=== PATIENT | female | born 2005 | race Caucasian/White ===

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

== ENCOUNTER 2023-07-21 09:48 | Emergency (ER) | payer BC, SELFPAY ==
--- NOTE | 2023-07-21 09:49 | ECG_ITS ---
APPROVED REPORT Exam: Resting ECG HR:78 bpm ECG Measurements Heart Rate 78 AXES VT 191 P 116 QRSd 96 QRS 100 QT 361 T 111 QTc 395 Conclusion SINUS RHYTHM ARM LEADS REVERSED [INVERTED P AND QRS IN I] NORMAL ECG UNCONFIRMED REPORT Electronically signed by : MICHELLE HAN, 07/21/2023 14:48:41
--- NOTE | 2023-07-21 09:49 | PC.NURSE ---
DR HAN AT BEDSIDE
[2023-07-21 09:57] VITALS: BP 142/79; PULSE 66; RESP 20; TEMP 37.1; O2SAT 100; BMI 25.7
--- NOTE | 2023-07-21 10:19 | ED_ITS ---
Discharge Plan Disposition Patient Disposition: Home, Self-Care Condition: Good Prescriptions Prescriptions: No Action glycopyrrolate 1 mg tablet 1 mg PO DAILY Qty: 90 3RF Referrals Follow up/Referrals: Jill Kate PA [Primary Care Provider] - See instructions Activity Restrictions/Add. Instructions Additional Instructions/Restrictions: You were evaluated in the emergency department today. Return for new or worsening symptoms. Clinical Impressions Clinical Impression: Syncope, vasovagal Instructions Patient Instructions: DI for Syncope in Adults (Fainting) Discharge ED Provider: Miryam Valles General Adult HPI General Chief complaint: Syncope Stated complaint: SYNCOPE Time Seen by Provider: 07/21/23 09:52 Mode of Arrival: Wheelchair Source of Information: Patient Limitations: No Limitations Description of Symptoms (Recalled from ER Triage Doc. by RN): pt to ed c/o syncope. pt reports she was watching a procedure of a family member and became light headed and passed out. pt a&o x4 on arrival to ed. pt has no complaints. History of Present Illness HPI narrative: This patient is a 17-year-old female without significant past medical history presenting to the emergency department for evaluation with concern for syncope. Patient was watching a family member have a block procedure done upstairs when she said that she developed tunnel vision, became lightheaded, diaphoretic, and passed out. She states the next and she remembers, she woke up in a wheelchair. She states she is currently feeling fine except is a little bit shaky. Per nursing staff from upstairs, patient passed out and landed on her face on the ground. They also took vitals and noted that she was bradycardic with a heart rate in the 30s. Patient denies any symptoms or concerns this morning and states that she ate breakfast and was feeling fine. She denies any headache, vision changes, facial pain, chest pain, shortness of breath, abdominal pain, or other concerns. Related Data Previous Rx's Medication Instructions Recorded glycopyrrolate 1 mg tablet 1 mg PO DAILY #90 tabs 12/09/21 Allergies Allergy/AdvReac Type Severity Reaction Status Date / Time No Known Allergies Allergy Verified 12/31/20 18:01 [facility] Disclaimer: The information contained in this section may have been updated after the patient was seen, as this information can be updated by other users. Social History Smoking Status: Never smoker alcohol intake: never substance use type: denies use current occupational status: student Travel in the last 8 weeks: None household members: family housing: house ROS Obtained: Yes All systems reviewed & no additional complaints except as documented Physical Exam General General appearance: alert and in no apparent distress Head Head exam: atraumatic and normocephalic Eye Eye exam: Present normal appearance, PERRL and EOMI ENT ENT exam: Present normal exam, normal oropharynx, mucous membranes moist and normal external ear exam Neck Neck exam: Present normal inspection, full ROM and trachea midline; Absent tenderness Chest Chest inspection: Present normal inspection and symmetric chest wall rise; Absent tenderness Respiratory Respiratory exam: Present normal lung sounds bilaterally; Absent respiratory distress, wheezes, stridor or accessory muscle use Cardiovascular Cardiovascular exam: Present regular rate and normal rhythm Abdominal Exam Abdominal exam: Present soft; Absent distention, tenderness or guarding Extremities Exam Extremities exam: Present normal inspection, full ROM and normal capillary refill; Absent tenderness or edema Back Exam Back exam: Present normal inspection and full ROM; Absent tenderness Neurological Exam Neurological exam: Present alert, oriented X3, CN II-XII intact and normal gait; Absent motor sensory deficit Psychiatric Psychiatric exam: Present normal affect and normal mood Skin Skin exam: Present warm and dry Medical Decision Making Medical Records Medical records reviewed: Yes I reviewed the patient's medical records. Blas Inquiry Pt receiving controlled substance: No Vital Signs: 07/21/23 09:57 07/21/23 10:40 Temperature 98.7 F 98.7 F Temperature Source Oral Oral Pulse Rate 71 Pulse Rate [Left Radial] 66 Respiratory Rate 20 20 Blood Pressure 125/67 Blood Pressure [Right Arm] 142/79 H Blood Pressure Mean [Right Arm] 100 02 Sat by Pulse Oximetry 100 Oxygen Delivery Method Room Air Room Air Lab Data Lab results reviewed: Yes I reviewed the patient's lab results. ECG Data Tracing #1: I reviewed this ECG and interpreted as documented below: Normal sinus rhythm with a ventricular rate of [address] changes concerning for ischemia. Normal axis and intervals. ECG initial impression date: 07/21/23 ECG initial impression time: 09:56 Medical Decision Narrative: In summary, this patient is a 17-year-old female presenting to the Emergency Department for evaluation of syncope. Differential diagnoses considered include but are not limited to vasovagal syncope, dysrhythmia, dehydration, electrolyte derangements. Ruling out the most morbid conditions drove assessment. On exam, the patient is very well-appearing with normal vital signs on cardiac telemetry. She denies any concerns or complaints at this time. Based on the fact that she was watching a medical procedure and had typical symptoms of v asovagal syncope, including bradycardia, I feel she most likely had vasovagal syncope. EKG obtained here was reassuring. I do not feel that labs or imaging are indicated at this time. will continue to monitor the patient and reassess. On subsequent reassessments, the patient continues to feel well and has had no significant symptoms. She complains of some bruising and tenderness to her chin , but no jaw malocclusion, loose teeth, or other concerns. No palpable bony deformity on clinical exam. She states that she thinks it is just bruised. She otherwise feels fine. She is able to eat and drink. Given reassuring exam, it is felt patient is appropriate for discharge at this time. Strict return precautions were given and she was discharged with diagnosis of vasovagal syncope Critical Care Critical Care Time Critical Care Time: No
[2023-07-21 10:40] VITALS: BP 125/67; PULSE 71; RESP 20; TEMP 37.1; O2SAT 98
== END 2023-07-21 10:41 | disposition home or self-care (01) ==
PROVIDERS: Emergency Provider Emergency Medicine; PCP Physician Assistant
DX: R55 Syncope and collapse (principal); S00.83XA Contusion of other part of head, initial encounter; W18.39XA Other fall on same level, initial encounter
CPT/HCPCS: 93005; 99283

== ENCOUNTER 2023-07-26 18:42 | Outpatient (CLI) | payer BC, SELFPAY | END 2023-07-26 23:59 | disposition home or self-care (01) | LOC: UTC.OUT 18:44 | PROVIDERS: PCP Physician Assistant; Visit Provider Nurse Practitioner | DX: Z11.1 Encounter for screening for respiratory tuberculosis (principal) | CPT/HCPCS: 86580 ==

== ENCOUNTER 2023-08-09 17:20 | Outpatient (CLI) | payer BC, SELFPAY | END 2023-08-09 23:59 | disposition home or self-care (01) | PROVIDERS: PCP Physician Assistant; Visit Provider Nurse Practitioner | DX: Z11.1 Encounter for screening for respiratory tuberculosis (principal) | CPT/HCPCS: 86580 ==

== ENCOUNTER 2023-08-10 13:49 | Outpatient (CLI) | payer BC, SELFPAY ==
[2023-08-12 13:09] LABS: Hepatitis B Surf Ab Quant 11.2 mIU/mL (Immunity>9.9)
== END 2023-08-10 23:59 | disposition home or self-care (01) ==
LOC: LAB 13:50
PROVIDERS: PCP Physician Assistant; Visit Provider Physician Assistant
DX: Z92.29 Personal history of other drug therapy (principal); Z01.84 Encounter for antibody response examination
CPT/HCPCS: 36415; 86706

== ENCOUNTER 2024-05-02 12:51 | Emergency (ER) | payer SELFPAY ==
[2024-05-02 13:05] VITALS: BP 127/76; PULSE 83; RESP 19; TEMP 36.8; O2SAT 98; BMI 29.8
--- NOTE | 2024-05-02 13:11 | ED_ITS ---
Discharge Plan Disposition Patient Disposition: Home, Self-Care Condition: Good Prescriptions Prescriptions: No Action glycopyrrolate 1 mg tablet 1 mg PO DAILY Qty: 90 3RF Referrals Follow up/Referrals: Jill aKte PA [Primary Care Provider] - See instructions Activity Restrictions/Add. Instructions Additional Instructions/Restrictions: * Too late to start Tamiflu. Most effective when started within 48 hours of symptoms onset * Lots of rest * Increase Fluids water, Gatorade, powerade, pedialyte,if /toddler/child * Alternate Tylenol and / or ibuprofen as discussed for fever, aches, chills Follow up IMMEDIATELY with your family doctor for new or worsening Symptoms OR no noticeable improvement over the next 48-72 hours, 911 for difficulty or breathing * You or your child area contagious until no fever, aches, chills for 24 hours with medication for symptoms * Help Prevent the spread of influenza: * ?Wash your hands often. Use soap and water. Wash your hands after you use the bathroom, change a child's diapers, or sneeze. Wash your hands before you prepare or eat food. Use gel hand cleanser that has 60% alcohol, when soap and water are not available. Do not touch your eyes, nose, or mouth unless you have washed your hands first. * Cover your mouth when you sneeze or cough. Cough into a tissue or the bend of your arm. If you use a tissue, throw it away immediately and wash your hands. * Clean shared items with a germ-killing acid cleaner. Clean table surfaces, doorknobs, and light switches. Do not share towels, silverware, and dishes with people who are sick. Wash bed sheets, towels, silverware, and dishes with soap and water. * Wear a mask over your mouth and nose if you are sick. The face mask may help protect others from becoming infected with the flu. Wear the mask when in common areas of your home or if you seek care with a healthcare provider. * Stay away from others if you are sick. Stay at home until 24 hours after your fever and symptoms are gone. Clinical Impressions Clinical Impression: Influenza Stand Alone Forms Stand Alone Forms: Work/School Release Instructions Patient Instructions: DI for Influenza -- Adult Print Language Print Language: Yi Discharge ED Provider: Bhavna Saldivar [facility] [place] HPI General Stated complaint: sore throat home test postive flu+ Mode of Arrival: Ambulatory Source of Information: Patient Limitations: No Limitations Time Seen by Provider: 05/02/24 13:11 Description of Symptoms (Recalled from Triage Doc. by RN): PATIENT C/O BODY ACHES AND SORE THROAT, RECENTLY EXPOSED TO FLU AND STREP HEENT Symptoms (Recalled from RN notes): Yes Resp Symptoms (Recalled from RN notes): No Skin Symptoms (Recalled from RN notes): No MS Symptoms (Recalled from RN notes): No Functional Status (Recalled from RN notes): WNL History of Present Illness Provider Complaint: Patient states that she hasnt felt well since Wednesday having body aches, sore throat and fever States that fever broke this morning and she took a home COVID/Flu test and it showed positive for the flu She wanted to come in and get checked to see if she had a positive test here too Related Data Previous Rx's ?Medication ?Instructions ?Recorded glycopyrrolate 1 mg tablet 1 mg PO DAILY #90 tabs 12/09/21 Allergies Allergy/AdvReac Type Severity Reaction Status Date / Time No Known Allergies Allergy Verified 12/31/20 18:01 Worker's Comp Is this a Worker's Comp case?: No PFSH [facility] Disclaimer: The information contained in this section may have been updated after the pat flori was seen, as this information can be updated by other users. Social History Smoking Status: Never smoker alcohol intake: never substance use type: denies use current occupational status: student Travel in the last 8 weeks: None household members: family housing: house Have you lived/traveled outside [place] in past 30 days?: No Contact w/someone who lives/traveled outside [place] past 30 days?: No Exposure to someone with infectious disease in past 14 days?: No Do you have a fever (greater than 100.4 F or 38 C)?: No Have you tested positive for COVID-19: No Exposed to someone with COVID-19 in past 14 days?: No Do you have a sore throat?: Yes Do you have a cough?: Yes Do you have any weakness?: No Do you have any diarrhea?: No Are you experiencing any unusual bleeding?: No Do you have any muscle aches/pain?: No Do you have any abdominal pain?: No Are you experiencing loss of taste or smell?: No ROS Obtained: Yes All systems reviewed & no additional complaints except as documented and Yes Systems reviewed as appropriate & no additional complaints except as documented Constitutional Constitutional: Reports system reviewed and no additional complaints, except as documented, Reports as per HPI, Reports body ache, Reports chills and Reports fever(s) ENT Ears, Nose, Mouth, and Throat: Reports system reviewed and no additional complaints, except as documented and Reports as per HPI Cardiovascular Cardiovascular: Reports system reviewed and no additional complaints, except as documented and Reports as per HPI Respiratory Respiratory: Reports system reviewed and no additional complaints, except as documented and Reports as per HPI Gastrointestinal Gastrointestingal: Reports system reviewed and no additional complaints, except as documented and as per HPI Musculoskeletal Musculoskeletal: Reports system reviewed and no additional complaints, except as documented and Reports as per HPI Physical Exam General General appearance: alert and in no apparent distress ENT ENT exam: Present mucous membranes moist Expanded ENT Exam Throat exam: Present tonsillar erythema; Absent tonsillomegaly or tonsillar exudate Respiratory Respiratory exam: Present normal lung sounds bilaterally; Absent respiratory distress or wheezes Cardiovascular Cardiovascular exam: Present regular rate, normal rhythm and normal heart sounds Abdominal Exam Abdominal exam: Present soft and normal bowel sounds; Absent distention or tenderness Neurological Exam Neurological exam: Present alert, oriented X3 and normal gait Medical Decision Making Medical Records Screening: Per USPSTF and CDC recommendations, given the prevalence of disease in our region, it is our hospital?s policy to screen for HIV and viral Hepatitis for all patients aged 18 and over and those with ongoing risk factors. Blas Inquiry Pt receiving controlled substance: No Blas was queried for this patient: No Vital Signs: 05/02/24 13:05 Temperature 98.3 F Temperature Source Oral Pulse Rate [Left Brachial] 83 Respiratory Rate 19 Blood Pressure [Left Arm] 127/76 Blood Pressure Mean [Left Arm] 93 Blood Pressure Source [Left Arm] Automatic Cuff Blood Pressure Position [Left Arm] Sitting 02 Sat by Pulse Oximetry 98 Oxygen Delivery Method Room Air Lab Data Lab results reviewed: Yes I reviewed the patient's lab results.
[2024-05-02 13:24] LABS: UTC Influenza A Antigen Positive (Negative); UTC Influenza B Antigen Negative (Negative); UTC Strep Screen (Rapid) Negative (Negative)
[2024-05-02 13:30] VITALS: BP 127/76; PULSE 83; RESP 19; TEMP 36.8; O2SAT 98
== END 2024-05-02 13:32 | disposition home or self-care (01) ==
PROVIDERS: Emergency Provider Nurse Practitioner; PCP Physician Assistant
DX: J11.1 Influenza due to unidentified influenza virus with other respiratory manifestations (principal)
CPT/HCPCS: 87804; 87880; 99212; G0381

== ENCOUNTER 2025-02-28 11:12 | Outpatient (CLI) | payer OTHER, SELFPAY ==
--- OUTSIDE RECORDS SUMMARY | 2025-02-28 11:17 | XMS_ITS | Clinical Summary ---
[facility] Address [address] [place] [id number] Care Team Providers Care Service Observer Name Role Phone Jill Kate Primary Care Provider [phone] Social History Tobacco Use Types Packs/Day Years Used Date Smoking Tobacco: Never Assessed Abuse Screen Answer Date Recorded Unsafe at Home or Work/School Not on file Feels Threatened by Someone? Not on file 12/2022 Does Anyone Keep You from Co ntacting Others or Doint Things Outside the Home? Not on file 01/11/2023 Physical Sign of Abuse Present Not on file 1 Housing Stability Answer Date Recorded Current Living Arrangements Not on file 12/2022 Potentially Unsafe Housing Conditions Not on rosie e 01/11/2023 Family and Community Support Answer Uriel e Recorded Help with Day-to-Day Activities Not on file 01/11/2023 Lonely or Isolated Not on file 01/11/2023 Employment Answer Date Recorded Do you want help finding or keeping work or a alison b? Not on file 01/11/2023 Disabilities Answer Date Recorded Concentrating, Remembering, or Making Decisions Difficulty Not on file 01/11/2023 Doing Errands Independently Difficulty Not on fi le 01/11/2023 Education Answer Date Recorded Help with school or training? Not on file Preferred Language Not on file 01/11/2023 Comments Unknown Sex and Gender Information Value Date Recorded Sex Assigned at Not on file Legal Sex Female 12:13 PM EDT Gender Identity Not on file Sexual Orientation Not on file Plan of Treatment Health Maintenance Due Date Last Done Comments Annual Gynecologic Pelvic an d Breast Exam 2003 ANNUAL PHYSICAL 06/15/2018 HEPATITIS C SCREENING 06/15/2018 PT PLAN OF CARE 06/15/2018 HPV VACCINES (1 - 3-dose series) 11/11/2018 MENINGOCOCCAL B VACCINE (1 o f 2 - Standard) 2019 TDAP/TD VACCINES (1 - Tdap) 11/11/2022 INFLUENZA VACCINE 11/03/2024 MENINGOCOCCAL VACCINE Aged Out No sherron patito eligible based on patient's age to complete this topic Pneumococcal Vaccine 0-49 Aged Out No longer eligible based on patient's age to complete this topic Insurance PPO Care Teams Service Observer Relationship Specialty Start Date End Date Jill Kate PA PCP - General Physician Thaw Shed Heater Tender 06/16/18
--- OUTSIDE RECORDS SUMMARY | 2025-02-28 11:17 | XMS_ITS | Data Portability ---
Author Organization [employer] Address [address] [place] [address] Assessment No assessment recorded. Plan of Treatment Reminders Order Date Submit Date Provider Last Modified By Organization Details Last Modified Time Details Appointments None recorded. Lab None recorded. Referral None recorded. Procedures None recorded. Surgeries None recorded. Imaging XR, knee, 4 or more view 2024 [facility] ([facility]), [address] [place] [address] [address] [place], [address], 04:21:29 Medication Orders Medrol (Manuel) 4 mg tablets in a dose pack 2024 [facility], [address], [address], 16:24:00 meloxicam 7.5 mg tablet 2024 [facility], [address], [address], 17:24:16 diclofenac 1 % topical gel 2024 [facility], [address], [address], 17:24:15 Patient TargetsNo targets recorded. Patient InstructionsNo instructions recorded. Reason for Referral None Reported. Problems Name Problem SNOMED Code Status Onset Date Resolution Date Notes Provider Name and Address Organization Details Recorded Time Pain of knee region 5401484171 Active Bebe BAUDILIO Ritchie [address] [place] [address], [id number] , Rezzie. 16:22:43 Problem Notes None recorded. Procedures Surgical History Date Name Laterality Status Provider Name and Address Organization Details Recorded Time finger operation completed Barbra Huayi. 02/27/2025 16:08:44 Tonsillectomy completed Barbra Huayi. 02/27/2025 16:05:31 Imaging Results None recorded. Procedure Notes None recorded. Medical Equipment None Reported. Allergies No known drug allergies Medications Name Sig Start Date Stop Date Status Note LastModified by Organization Details LastModified Time Medrol (Manuel) 4 mg tablets in a dose pack Take 1 dose pk by oral route as directed for 6 days. 2024 active Not Available Not Available Not Avai lable meloxicam 7.5 mg tablet Take 1 tablet every day by oral route for 30 days. 2024 active Not Available Not Available Not Avai lable 04/24 (28) 1 mg-20 mcg (21)/75 mg (7) tablet 02/27 completed Not Available Not Available Not Available diclofenac 1 % topical gel APPLY 2 GRAMS TO THE AFFECTED AREA(S) BY TOPICAL ROUTE 4 TIMES PER DAY 2024 active Not Available Not Available Not Avai lable Vitals Date Recorded Body weight Body mass index (BMI) Body height Oxygen saturation Heart rate Body temperature Systolic And Diastolic Provider Name and Address Organization Details Last Updated DateTime 5 68359.5 4 g 30.2 kg/m2 162.56 cm 97 % 70 /min 98.1 [degF] 126/78 mm[Hg] Barbra [employer] 16:07:30 Social History Question Answer Notes LastModified by Organizat ion Details LastModified Time Tobacco Smoking Status Never Smoker [facility]bra [employer]. 02/27/2025 16:01:01 Do You Have An Advance Directive? No Information not available 02/27/2025 Is Your Home Air Conditioned? Yes Information not available 02/27/2025 What Is Your Level Of Caffeine Consumption? Moderate Information not available 02/27/2025 Are You A Caregiver? No Information not available 02/27/2025 What Type Of Diet Are You Following? REGULAR Information not available 02/27/2025 What Is The Highest Grade Or Level Of School You Have Completed Or The Highest Degree You Have Received? [id number] Information not available 02/27/2025 How Many Days Of Moderate To Strenuous Exercise, Like A Brisk Walk, Did You Do In The Last 7 Days? 4 Information not available 02/27/2025 On Those Days That You Engage In Moderate To Strenuous Exercise, How Many Minutes, On Average, Do You Exercise? 45 Information not available 02/27/2025 Have There Been Any Changes To Your Family Or Social Situation? No Information not available 02/27/2025 Are There Any Guns Present In Your Home? Yes Information not available 02/27/2025 Which Of Your Hands Is Dominant? Right Information not available 02/27/2025 Do You Engage In Moderate/heavy Exercise (e.g. Brisk Walk, Jogging, Strength Training, Etc)? Yes Information not available 02/27/2025 Where Do You Live? SingleLevelHouse Information not available 02/27/2025 Do You Have A Medical Power Of Activities Counselor? No Information not available 02/27/2025 What Was The Date Of Your Most Recent Tobacco Screening? 02/27/2025 Information not available 02/27/2025 Are There Any Occupational Health Risks Where You Work? No Information not available 02/27/2025 Do You Have Any Pets? Yes Information not available 02/27/2025 What Is Your Relationship Status? Committed Partner(s) Information not available 02/27/2025 Do You Wear A Seatbelt When Driving Or As A Passenger? Yes Information not available 02/27/2025 Do You Use Your Seat Belt Or Car Seat Routinely? Yes Information not available 02/27/2025 Are You Sexually Active? No Information not available 02/27/2025 Do You Have Smoke And Carbon Monoxide Detectors In Your Home? Yes Information not available 02/27/2025 Are You Passively Exposed To Smoke? No Information not available 02/27/2025 Are There Any Smokers In Your House? No Information not available 02/27/2025 Has Tobacco Cessation Counseling Been Provided? No Information not available 02/27/2025 Have You Recently Traveled Abroad? No Information not available 02/27/2025 Are You Currently In School? Yes Information not available 02/27/2025 What Contraceptive Method Was Reported At Start Of This Visit? None Information not available 02/27/2025 Do You Feel Safe In Your Home? Yes Information not available 02/27/2025 Do You Have Any Dietary Restrictions? No Information not available 02/27/2025 What Is Your Reason For Having No Contraceptive Method At Start Of This Visit? Abstinence Information not available 02/27/2025 Sex: Female Functional Status Question Answer Note LastModified by Organizat ion Details LastModified Time Do you use any illicit or recreational drugs? No Information not available 02/27/2025 Do you feel safe in your relationship? Yes Information n ot available 02/27/2025 Do you or have you ever used any other forms of tobacco or nicotine? No Information not available 02/27/2025 What is your level of alcohol consumption? None Information not available 02/27/2025 Are you currently employed? Yes Information not available 02/27/2025 Do you have transportation difficulties? No Information not available 02/27/2025 Are you able to care for yourself independently? Yes Information not available 02/27/2025 Mental Status Question Answer Note LastModified by Organization D etails LastModified Time Do you feel stressed (tense, restless, nervous, or anxious, or unable to sleep at night)? [id number] Information not available 02/27/2025 Family History Relationship Description Onset Age of this Age Resolved Age Notes LastModified by Organization Details LastModified Time Maternal Grandmother Malignant neoplasm of breast Not available 2024 16:04:35 Medical History Condition Response Coronary Artery Disease N Gout N Other N Kidney Stones N Blood Diseases N Hyperthyroidism N Breast Cancer N Blood Transfusion N Emergency room visit since last appointm ent. N Hypothyroidism N Dermatologic Disorders N Depression N COPD N Lung Disease N Developmental or Behavioral Disorders N Defects or Inherited Disease N Breast Problem N Difficulty Swallowing N Anesthesia Complications N History of STI N Anxiety Disorder N Meniere's disease N Autoimmune disease N Muscle, Joint, or Bone Problems N Vision or Eye Problems N Arthritis N Infertility N Polyps N Mental Disorder N Congenital Anomalies N Acid Reflux (GERD) N Cancer N Stroke N Neurologic/Epilepsy N Endometriosis N Bladder or Kidney Problems N High Cholesterol N Liver Disease N Organ Transplant N Psychiatric/Mental Health Condition N Dialysis N Headaches N Fibromyalgia N Schizophrenia N Kidney Disease N Allergies/Hayfever N Heart Problems N Ear or Hearing Problems N Hospitalizations N Learning Disorder N Artificial Joints N Thyroid Problems N GI Problems N Acne N ADD/ADHD N Eating Disorder N Anemia N Constipation N Mental Illness N Diabetes N Ovarian Cancer N Bedwetting N Hepatitis/Liver Disease N Tuberculosis N Eczema N Abuse/Domestic Violence N Diverticulitis N Asthma N Trauma/Violence N Substance Abuse N Amnesia/Cognitive Decline N Reflux/GERD N Depression/ depression N Hepatitis N Heart Disease N Pulmonary Embolism N Tourette Syndrome N Chronic Ear Infections N Pre-Eclampsia N Hypertension N Chicken Pox N Autism Spectrum Disorder (ASD) N Osteoporosis N Thrombophilias N Gynecological History Statement/Question Response Flow Moderate Date of LMP 02/19/2025 Date of Last Pap Smear Current Control Method Abstinence Most Recent Mammogram LMP Definite Obstetrics History GPAL:G 0 P 0 0 0 0 Immunizations Vaccine Type Date Status Note Provider Nam e and Address Organization Details Recorded Time Hep B, adolescent or pediatric 4 completed Not Available [facility] 02/27/2025 15:40:50 DTaP 4 completed Not Available [facility] 02/27/2025 15:40:50 Hib (PRP-T) 4 completed Not Available [facility] 02/27/2025 15:40:50 Pneumococcal conjugate PCV 13 4 completed [facility] Available [facility] 02/27/2025 15:40:50 IPV 4 completed Not Available [facility] 02/27/2025 15:40:50 Hep B, adolescent or pediatric 4 completed Not Available [facility] 02/27/2025 15:40:50 DTaP 4 completed Not Available [facility] 02/27/2025 15:40:50 Hib (PRP-T) 4 completed Not Available [facility] 02/27/2025 15:40:50 Pneumococcal conjugate PCV 13 4 completed Not Available [facility] 02/27/2025 15:40:50 IPV 4 completed Not Available [facility] 02/27/2025 15:40:50 Hep B, adolescent or pediatric 4 completed Not Available [facility] 02/27/2025 15:40:50 DTaP, unspecified formulation 5 completed Not Available [facility] 02/27/2025 15:40:50 Hib (PRP-OMP) 5 completed Not Available [facility] 02/27/2025 15:40:50 IPV 5 completed Not Available [facility] 02/27/2025 15:40:50 varicella 5 completed Not Available [facility] 02/27/2025 15:40:50 Pneumococcal conjugate PCV 13 5 completed Not Available [facility] 02/27/2025 15:40:50 MMR 6 completed Not Available [facility] 02/27/2025 15:40:50 DTaP 6 completed Not Available [facility] 02/27/2025 15:40:50 Hib (PRP-T) 6 completed Not Available [facility] 02/27/2025 15:40:50 MMR 8 completed Not Available [facility] 02/27/2025 15:40:50 varicella 8 completed Not Available [facility] 02/27/2025 15:40:50 DTaP 8 completed Not Available [facility] 02/27/2025 15:40:50 IPV 8 completed Not Available [facility] 02/27/2025 15:40:50 Influenza, live, quadrivalent, intranasal 4 completed Not Available [facility] 02/27/2025 15:40:50 meningococcal MCV4, unspecified formulation 5 completed Not Available [facility] 02/27/2025 15:40:50 Tdap 5 completed Not Available [facility] 02/27/2025 15:40:50 Influenza, live, quadrivalent, intranasal 5 completed Not Available [facility] 02/27/2025 15:40:50 Hep B, adolescent or pediatric 5 completed Not Available [facility] 02/27/2025 15:40:50 Influenza, split virus, quadrivalent, PF 0 completed Not Available [facility] 02/27/2025 15:40:50 meningococcal MCV4P 0 completed Not Available [facility] 02/27/2025 15:40:50 Influenza, split virus, quadrivalent, PF 5 completed Not Available [facility] 02/27/2025 15:40:50 Tdap 5 completed Not Available [facility] 02/27/2025 15:40:50 Influenza, split virus, quadrivalent, PF 5 completed Not Available [facility] 02/27/2025 15:40:50 Past Encounters Encounter ID Performer Location Encounter Start Date Encounter Closed Date Diagnosis/Indication Diagnosis SNOMED-CT Code Diagnosis ICD10 Code Diagnosis IMO Codes Diagnosis Note [id number] BAUDILIO Ritchie [facility] [address] [place] [address] 02/27/2025 15:39:33 02/27/2025 16:22:28 Pain of knee region 4606372255 M25.561 [id number] ? crooks's cyst Health Concerns Section Related Observation LastModified by Organization Detai ls LastModified Time None Recorded Concern Status LastModified by Organization Details LastModified Time None Recorded Advance Directives Directive N: Payers Insurance Date Sequence Insurance Name Policy Number Policy Freeman Covered Member ID Freeman Member ID Guarantor Name 02/27/2025 1 [id number] César Sorensen [id number] Néstor Sorensen 02/27/2025 1 [employer] [id number] Néstor Sorensen [id number] Néstor Sorensen Notes Date Note Type Note Provider Name and Address Organization Details Recorded Time 02/27/2025 text/html ROS as noted in the HPI RIght knee pain X 6 months. Started somewhat insidiously and would come and go. No known injury. Tylenol and Motrin helped a little. 3 or so weeks ago it started hurting more consistently. No injury. For the past 5 days it has been painful, swollen. Cannot extend leg completely. Hurts to push on the back of her knee. No clicking or locking. No instability. BAUDILIO Ritchie [address] [place] [address], [place], [address], [facility] [employer] 02/27/2025 17:27:36 OBGyn Episode No OBEpisode recorded.
--- OUTSIDE RECORDS SUMMARY | 2025-02-28 11:18 | XMS_ITS | Continuity of Care Document ---
Author Organization [place] [facility] Address [address] [place] [address] Assessment No assessment recorded. Plan of Treatment Reminders Order Date Submit Date Provider Last Modified By Organization Details Last Modified Time Details Appointments None recorded. Lab None recorded. Referral None recorded. Procedures None recorded. Surgeries None recorded. Imaging XR, knee, 4 or more view 2024 [facility] ([facility]), [address] [place] [address] [address] [place], [address], 04:21:29 Medication Orders Medrol (Manuel) 4 mg tablets in a dose pack 2024 [facility], [address], [address], 16:24:00 meloxicam 7.5 mg tablet 2024 [facility], [address], [address], 5 17:24:16 diclofenac 1 % topical gel 2024 [facility], [address], [address], 17:24:15 Patient TargetsNo targets recorded. Patient InstructionsNo instructions recorded. Reason for Referral None Reported. Problems Name Problem SNOMED Code Status Onset Date Resolution Date Notes Provider Name and Address Organization Details Recorded Time Pain of knee region 8632623597 Active BAUDILIO Miles [address] [place] [address], [place], [address] , [employer]. 16:22:43 Problem Notes None recorded. Procedures Surgical History Date Name Laterality Status Provider Name and Address Organization Details Recorded Time finger operation completed Barbra [employer]. 02/27/2025 16:08:44 Tonsillectomy completed Barbra [employer] 02/27/2025 16:05:31 Imaging Results None recorded. Procedure [...] and Address Organization Details Last Updated DateTime 49493.5 4 g 30.2 kg/m2 162.56 cm 97 % 70 /min 98.1 [degF] 126/78 mm[Hg] Barbra [employer] 16:07:30 Social History Question Answer Notes LastModified by Organizat ion Details LastModified Time Tobacco Smoking Status Never Smoker [employer] 02/27/2025 16:01:01 Do You Have An Advance [...] Or The Highest Degree You Have Received? [id number] Information not available 02/27/2025 How Many Days [...] Do You Have A Medical Power Of Automatic Packer Operator? No Information not available 02/27/2025 What Was [...] anxious, or unable to sleep at night)? [id number] Information not available 02/27/2025 Family History Relationship Description Onset Age of this Age Resolved Age Notes LastModified by Organization Details LastModified Time Maternal Grandmother Malignant neoplasm of breast Not available 2024 16:04:35 Medical History Condition Response Coronary Artery Disease N Other N Gout N Kidney Stones N Blood Diseases N Hyperthyroidism N Blood Transfusion N Breast Cancer N Emergency room visit since last appointm ent. N COPD N Depression N Dermatologic Disorders N Hypothyroidism N Lung Disease N Developmental or Behavioral Disorders N Defects or Inherited Disease N Breast Problem N Difficulty Swallowing N Anesthesia Complications N History of STI N Meniere's disease N Anxiety Disorder N Muscle, Joint, or Bone Problems N Autoimmune disease N Vision or Eye Problems N Arthritis N Polyps N Infertility N Mental Disorder N Congenital Anomalies N Acid Reflux (GERD) N Cancer N Stroke N Neurologic/Epilepsy N Endometriosis N Bladder or Kidney Problems N High Cholesterol N Liver Disease N Organ Transplant N Psychiatric/Mental Health Condition N Fibromyalgia N Dialysis N Schizophrenia N Headaches N Kidney Disease N Allergies/Hayfever N Heart Problems N Ear or Hearing Problems N Hospitalizations N Learning Disorder N Artificial Joints N Thyroid Problems N GI Problems N Acne N ADD/ADHD N Eating Disorder N Anemia N Constipation N Mental Illness N Ovarian Cancer N Diabetes N Bedwetting N Hepatitis/Liver Disease N Tuberculosis N Eczema N Diverticulitis N Abuse/Domestic Violence N Asthma N Trauma/Violence N Substance Abuse [...] adolescent or pediatric 4 completed [facility] 02/27/2025 15:40:50 DTaP 4 completed Not Available [...] MCV4, unspecified formulation 5 completed Not Available [facility] 02/27/2025 15:40:50 Tdap 5 completed Not Available [facility] 02/27/2025 15:40:50 Influenza, live, quadrivalent, intranasal 5 completed Not Available [facility] 02/27/2025 15:40:50 Hep B, adolescent or pediatric 5 completed Not Available [facility] 02/27/2025 15:40:50 Influenza, split virus, quadrivalent, PF 0 completed Not Available [facility] 02/27/2025 15:40:50 meningococcal MCV4P 0 completed Not Available [facility] 02/27/2025 15:40:50 Influenza, split virus, quadrivalent, PF 5 completed Not Available [facility] 02/27/2025 15:40:50 Tdap 5 completed Not Available [facility] 02/27/2025 15:40:50 Influenza, split virus, quadrivalent, PF 5 completed Not Available [facility] 02/27/2025 15:40:50 Past Encounters Encounter ID Performer Location Encounter Start Date Encounter Closed Date Diagnosis/Indication Diagnosis SNOMED-CT Code Diagnosis ICD10 Code Diagnosis IMO Codes Diagnosis Note [id number] BAUDILIO Ritchie [facility] [address] [place] [address] 02/27/2025 15:39:33 02/27/2025 16:22:28 Pain of knee region 9125142319 M25.561 [id number] ? crooks's cyst Health Concerns Section Related Observation LastModified by Organization Detai ls LastModified Time None Recorded Concern Status LastModified by Organization Details LastModified Time None Recorded Payers Encounter Date Sequence Insurance Name Policy Number Policy Freeman Covered Member ID Freeman Member ID Guarantor Name 02/27/2025 1 [facility] [id number] César Sorensen [id number] Néstor Sorensen Notes Date Note Type Note [...] clicking or locking. No instability. BAUDILIO Ritchie [address] [place] [address], [phone], [facility] [employer] 02/27/2025 17:27:36 OBGyn Episode No OBEpisode recorded.
--- NOTE | 2025-02-28 11:26 | XR_ITS ---
FINAL REPORT CLINICAL HISTORY: ACUTE PAIN OF RIGHT KNEE, no known injury FINDINGS: AP, lateral and oblique views of the right knee were obtained. There is no prior exam for comparison. There is no acute osseous abnormality of the right knee. The joint space is preserved. The soft tissues are normal. There is no joint effusion. IMPRESSION: No acute osseous abnormality of the right knee. Reviewed, Interpreted and Dictated by Emma Tenorio MD Transcribed by Christy Cross Authenticated and [facility]
== END 2025-02-28 23:59 | disposition home or self-care (01) ==
LOC: RAD 11:16
PROVIDERS: PCP Physician Assistant; Visit Provider Physician Assistant
DX: M25.561 Pain in right knee (principal)
CPT/HCPCS: 73562